=== PATIENT | male | born 1955 | race Caucasian/White ===

== ENCOUNTER 2017-01-10 15:04 | Outpatient (CLI) | payer BC ==
--- NOTE | 2017-01-10 15:43 | Diagnostic Imaging Report ---
Indication: PAIN Technique: 3 views of the left ankle Comparison: none Findings: No acute fractures. No dislocations. Joint spaces are preserved. Normal mineralization. No radiopaque foreign body. There is soft tissue swelling over the lateral malleolus as well as of the anterior ankle joint Impression: Evidence of lateral soft tissue injury. Negative for acute bony trauma.
== END 2017-01-10 17:04 | disposition home or self-care (01) ==
LOC: RAD 15:04
DX: M25.572 Pain in left ankle and joints of left foot (principal); Z91.81 History of falling